=== PATIENT | female | born 1995 | race Caucasian/White ===

== ENCOUNTER 2017-12-06 11:50 | Emergency (ER) | payer BC | END 2017-12-06 12:01 | disposition home or self-care (01) | LOC: E/R 11:50 | DX: J40 Bronchitis, not specified as acute or chronic (principal) | CPT/HCPCS: 99284; Z7502 ==

== ENCOUNTER 2018-05-31 19:42 | Emergency (ER) | payer BC | END 2018-05-31 21:19 | disposition home or self-care (01) | LOC: FTE 19:42 | DX: J00 Acute nasopharyngitis [common cold] (principal) | CPT/HCPCS: 99282 ==

== ENCOUNTER 2018-08-15 11:15 | Emergency (ER) | payer BC | END 2018-08-15 11:49 | disposition home or self-care (01) | LOC: FTE 11:15 | DX: J06.9 Acute upper respiratory infection, unspecified (principal) | CPT/HCPCS: 99283; Z7502 ==